=== PATIENT | female | born 1965 | race Caucasian/White ===

== ENCOUNTER → 2017-12-03 | Outpatient (CLI) | payer OTHER | END | disposition home or self-care (01) | LOC: CFH 13:25 | PROVIDERS: ATTEND Nurse Practitioner Primary Care | DX: R92.2 Inconclusive mammogram (principal); N64.89 Other specified disorders of breast | CPT/HCPCS: 77065 ==

== ENCOUNTER 2020-07-09 08:50 | Emergency (ER) | payer OTHER ==
[~2020-07-09] VITALS: Ht 170.2 cm; Wt 77.0 kg
--- NOTE | 2020-07-09 09:25 | NUR ---
PT PRESENTS TO ED WITH C/O LEFT EAR LAC S/P TRIPPING AND FALLING YESTERDAY, STRIKING HEAD/EAR. BLEEDING BEGAN THIS AM AGAIN, NOW CONTROLLED UNDER DRESSING. PT IS A&O, RESPS EVEN AND UNLABORED. PT DENIES NECK PAIN/TENDERNESS. PT STATES SHE IS NOT NORMALLY HYPERTENSIVE, "JUST WHEN I GO TO THE DOCTOR'S". PT STATES LAST TETANUS VACC WAS 3 YEARS AGO. YVETTE ZAVALETA AT BEDSIDE FOR INITIAL ASSESSMENT.
[2020-07-09] MEDS ORDERED: LIDOCAINE 2%, 20ML SQ ONE (09:30)
[2020-07-09] MEDS ORDERED: LIDOCAINE-MPF 1%, 5ML ONE ×2 (09:34→10:11)
--- NOTE | 2020-07-09 10:20 | NUR ---
NERVE BLOCK ADMINISTERED BY YVETTE ZAVALETA, PT'S WOUND IRRIGATED BY YVETTE WRIGHT AT BEDSIDE FOR SUTURE AT THIS TIME
--- NOTE | 2020-07-09 10:47 | NUR ---
SUTURES COMPLETE, PT TO HAVE DRESSING AND DC. YVETTE ZAVALETA AWARE OF CURRENT BP, TRENDING DOWN.
[2020-07-09] MEDS ORDERED: NEOSPORIN OINT. PKT 1 PACKET ONE (11:13)
[2020-07-09 11:14] VITALS: BP 153/71
[2020-07-09] MEDS ORDERED: DIPH,PERTUSS(ACELL),TET VAC/PF 0.5 ML IM-VACC ONE (11:14)
== END 2020-07-09 11:20 | disposition home or self-care (01) ==
LOC: ED 09:59
DX: S01.312A Laceration without foreign body of left ear, initial encounter (principal); I10 Essential (primary) hypertension; W01.0XXA Fall on same level from slipping, tripping and stumbling without subsequent striking against object, initial encounter; Y93.89 Activity, other specified; Y92.098 Other place in other non-institutional residence as the place of occurrence of the external cause; Y99.8 Other external cause status
CPT/HCPCS: 12051; 99284

== ENCOUNTER 2020-07-11 08:01 | Emergency (ER) | payer OTHER ==
[~2020-07-11] VITALS: Ht 170.2 cm; Wt 79.6 kg
[2020-07-11 08:44] VITALS: BP 148/94
--- NOTE | 2020-07-11 08:54 | NUR ---
Patient's left ear is healing well with no s/s infection. Packed ear protector with new gauze and reapplied to patient's head. Patient given discharge instructions and they have confirmed that they understand the instructions. Patient ambulatory with steady gait.
== END 2020-07-11 08:55 | disposition home or self-care (01) ==
LOC: ED 08:24
DX: S01.312D Laceration without foreign body of left ear, subsequent encounter (principal); Z48.00 Encounter for change or removal of nonsurgical wound dressing; I10 Essential (primary) hypertension; X58.XXXD Exposure to other specified factors, subsequent encounter
CPT/HCPCS: 99281